=== PATIENT | female | born 1985 | race Caucasian/White ===

== ENCOUNTER 2018-08-03 06:58 | Emergency (ER) | payer BC, MEDICAID ==
[2018-08-03 07:37] LABS: ADD MAN DIFF? NO
[2018-08-03] MEDS: FAMOTIDINE 20 MG INJ IV (07:37)
[2018-08-03] MEDS: ONDANSETRON 4 MG INJ IV ×3 (07:37→10:38)
[2018-08-03] MEDS: morphine 4 MG/ML VIAL IV (07:37)
[2018-08-03 07:38] LABS: WHITE BLOOD COUNT 11.9 10^3/ul (4.8-10.8)
[2018-08-03 07:38] LABS: BASOPHILS % 0.2 % (0.0-2.0); EOSINOPHILS % 0.3 % (0.0-7.0); HEMOGLOBIN 14.5 g/dl (12.0-16.0); LYMPHOCYTES # 1.6 10^3/ul (0.8-2.9); LYMPHOCYTES % 13.1 % (15.0-51.0); MEAN CORPUSCULAR HEMOGLOBIN 30.8 pg (29.0-33.0); MEAN CORPUSCULAR HGB CONC 35.4 g/dl (32.0-37.0); MEAN PLATELET VOLUME 10.5 fl (7.4-10.4); MONOCYTE # 0.3 10^3/ul (0.3-0.9); MONOCYTES % 2.4 % (0.0-11.0); NEUTROPHIL # 9.9 10^3/ul (1.6-7.5); NEUTROPHILS % 83.7 % (39.0-77.0); PLATELET COUNT 208 10^3/UL (140-415); RED BLOOD COUNT 4.71 10^6/ul (4.20-5.40); RED CELL DISTRIBUTION WIDTH 12.5 % (11.5-14.5)
[2018-08-03] MEDS: SOD CHLORIDE 0.9% 1,000 ML IV ×2 (07:40→08:40)
[2018-08-03 07:56] LABS: ALANINE AMINOTRANSFERASE 37 IU/L (13-69); ALBUMIN 5.3 g/dl (3.3-4.9); ALBUMIN/GLOBULIN RATIO 1.51; ALKALINE PHOSPHATASE 97 IU/L (42-121); AMYLASE 87 U/L (11-123); ANION GAP 14 (5-13); ASPARTATE AMINO TRANSFERASE 28 IU/L (15-46); BILIRUBIN,INDIRECT 1.3 mg/dl (0-1.1); BILIRUBIN,TOTAL 1.3 mg/dl (0.2-1.3); BLOOD UREA NITROGEN 14 mg/dl (7-20); CALCIUM 10.4 mg/dl (8.4-10.2); CARBON DIOXIDE 23 mmol/L (21-31); CHLORIDE 108 mmol/L (97-110); CREATININE 0.68 mg/dl (0.44-1.00); Estimated GFR > 60 mL/min (>60); GLUCOSE 152 mg/dl (70-220); LIPASE 68 U/L (23-300); POTASSIUM 4.3 mmol/L (3.5-5.1); SODIUM 145 mmol/L (135-144); TOTAL PROTEIN 8.8 g/dl (6.1-8.1)
[2018-08-03 07:59] LABS: INR 0.88; PARTIAL THROMBOPLASTIN TIME 29.9 Sec (23.0-35.0); PT RATIO 0.9
[2018-08-03] MEDS: SOD CHLORIDE 0.9% 100 ML (08:24)
[2018-08-03] MEDS: IODIXANOL LOCM 100 ML BTL (08:24)
[2018-08-03] MEDS: HYDROmorphONE 1 MG/ML SYG IV (08:33)
[2018-08-03 09:30] LABS: ADD UMIC NO; UR ASCORBIC ACID NEGATIVE (NEGATIVE); UR BILIRUBIN (Dip) NEGATIVE (NEGATIVE); UR BLOOD (Dip) NEGATIVE (NEGATIVE); UR CLARITY CLEAR (CLEAR); UR COLOR YELLOW (YELLOW); UR GLUCOSE (Dip) NEGATIVE (NEGATIVE); UR KETONES (Dip) 2+ mg/dL (NEGATIVE); UR LEUKOCYTE ESTERASE (Dip) NEGATIVE Leu/ul (NEGATIVE); UR NITRITE (Dip) NEGATIVE (NEGATIVE); UR SPECIFIC GRAVITY (Dip) > 1.060 (1.003-1.030); UR TOTAL PROTEIN (Dip) NEGATIVE (NEGATIVE); UR UROBILINOGEN (Dip) NEGATIVE (NEGATIVE)
[2018-08-03 10:04] LABS: CREATINE KINASE 67 IU/L (23-200)
[2018-08-03 10:17] LABS: CK INDEX 0.4; CK-MB 0.29 ng/ml (0.0-2.4); TROPONIN-I < 0.012 ng/ml (0.000-0.120)
[2018-08-03] MEDS: LORAZEPAM 2 MG INJ IV (11:28)
== END 2018-08-03 11:53 | disposition home or self-care (01) ==
LOC: E/R 06:58
DX: N83.202 Unspecified ovarian cyst, left side (principal)
CPT/HCPCS: 71045; 74177; 76856; 80053; 81003; 82150; 82550; 82553; 83690; 84484; 84703; 85025; 85610; 85730; 93005; 96374; 96375; 96376; 99285-25

== ENCOUNTER 2018-08-08 15:52 | Emergency (ER) | payer BC ==
[2018-08-08 16:52] LABS: URINE PH (Dip) POC 5.5 (5.0-8.5)
[2018-08-08 16:52] LABS: URINE BLOOD (Dip) POC Trace-lysed (NEGATIVE); URINE GLUCOSE (Dip) POC Negative (NEGATIVE); URINE KETONES (Dip) POC Negative (NEGATIVE); URINE LEUKOCYTE EST (Dip) POC Negative (NEGATIVE); URINE NITRITE (Dip) POC Negative (NEGATIVE); URINE TOTAL PROTEIN POC Negative (NEGATIVE)
[2018-08-08] MEDS: KETOROLAC 60 MG INJ IM (17:02)
[2018-08-08] MEDS: ONDANSETRON (ODT) 4 MG TAB ODT (17:02)
== END 2018-08-08 17:39 | disposition home or self-care (01) ==
LOC: FTE 15:52
DX: N83.202 Unspecified ovarian cyst, left side (principal); R10.2 Pelvic and perineal pain
CPT/HCPCS: 81003; 81025; 96372; 99284-25